=== PATIENT | male | born 2000 | race Caucasian/White ===

== ENCOUNTER 2018-01-06 21:11 | Emergency (ER) | payer MEDICAID ==
[~2018-01-06] VITALS: Ht 193 cm; Wt 134.5 kg
[2018-01-06] MEDS ORDERED: IBUPROFEN 800 MG TABLET PO ONE (22:30)
[2018-01-06] MEDS ORDERED: SULFAMETHOX/TRIMETH DS 800-160 MG/TABLET PO ONE (22:30)
[2018-01-06 23:00] VITALS: BP 131/85
== END 2018-01-06 23:09 | disposition home or self-care (01) ==
LOC: EMS 21:13
DX: L03.116 Cellulitis of left lower limb (principal); L02.416 Cutaneous abscess of left lower limb
CPT/HCPCS: 96372; 99283; J0690